=== PATIENT | female | born 1990 | race African-American/Black ===

== ENCOUNTER 2018-03-23 21:13 | Emergency (ER) | payer SELFPAY ==
[2018-03-23 21:41] VITALS: BP 107/56; PULSE 96; TEMP 99.1; BMI 38.2
[2018-03-23] MEDS ORDERED: ALBUTEROL SO4 2.5/IPRATROPIUM 0.5 INH SOL 3 ML VIAL.NEB. NEB ONE ×3 (22:25→22:51)
[2018-03-23] MEDS ORDERED: methylPREDNISolone NA SUCC 125 MG/2 ML VIAL IM ONE (22:25)
--- NOTE | 2018-03-23 22:30 | PDOC ---
History of Present Illness - General Chief Complaint: Asthma Stated Complaint: SICK Time Seen by Provider: 03/23/18 22:24 History Source: Patient Exam Limitations: Clinical Condition - History of Present Illness Initial Comments: 03/23/18 22:26 Patient with history of asthma and COPD on albuterol and Symbicort present with complaint of three-day history of persistent cough, runny nose, intermittent shortness of breath and chest tightness which has not been responding to home rescue inhaler. Patient reported malaise and persistent nonproductive cough. Patient report vomiting from coughing so much.Denies any other symptoms 03/23/18 22:28 Timing/Duration: other (3 days) Past History - Past Medical History Allergies/Adverse Reactions: Allergies Allergy/AdvReac Type Severity Reaction Status Date / Time Penicillins Allergy Verified 03/23/18 21:41 Home Medications: Ambulatory Orders Albuterol 2.5/Ipratropium 0.5 [Duoneb -] 1 neb NEB Q4H PRN 1 Days #1 vial Benzonatate [Tessalon Pearls -] 100 mg PO TID PRN #21 capsule 03/23/18 Loratadine 10 mg PO DAILY #10 capsule 03/23/18 Methylprednisolone [Medrol Dose Jarred] 4 mg PO ASDIR #21 tablet 03/23/18 Nebulizer and Compressor [Portable Nebulizer System] 1 each MC Q4H PRN #1 each 03/23/18 - Suicide/Smoking/Psychosocial Hx Smoking History: Never smoked Have you smoked in the past 12 months: No Information on smoking cessation initiated: No Hx Alcohol Use: No Drug/Substance Use Hx: No Review of Systems - Review of Systems Able to Perform ROS?: Yes Is the patient limited Syriac proficient: No Constitutional: Yes: Malaise. No: Chills, Fever, Weakness HEENTM: Yes: Symptoms Reported, See HPI, Nose Congestion. No: Eye Pain, Blurred Vision, Tearing, Recent change in vision, Double Vision, Cataracts, Ear Pain, Ocular Prothesis, Ear Discharge, Nose Pain, Tinnitus, Nose Bleeding, Hearing Loss, Throat Pain, Throat Swelling, Mouth Pain, Dental Problems, Difficulty Swallowing, Mouth Swelling, Other Respiratory: Yes: Symptoms reported, See HPI, Cough, Shortness of Breath, Wheezing. No: Orthopnea, SOB with Exertion, SOB at Rest, Stridor, Productive cough, Hemoptysis, Other Cardiac (ROS): No: Symptoms Reported, See HPI, Chest Pain, Edema, Irregular Heart Rate, Lightheadedness, Palpitations, Syncope, Chest Tightness, Other ABD/GI: Yes: Nausea, Vomiting. No: Constipated, Diarrhea All Other Systems: Reviewed and Negative *Physical Exam - Vital Signs Last Vital Signs Temp Pulse Resp BP Pulse Ox 99.1 F 96 H 18 107/56 L 99 03/23/18 21:38 03/23/18 21:38 03/23/18 21:38 03/23/18 21:38 03/23/18 21:38 - Physical Exam Comments: 03/23/18 22:28 GENERAL: Well developed, well nourished. Awake and alert. No acute distress. HEENT: Normocephalic, atraumatic. PERRLA, EOMI. No conjunctival pallor. Sclera are non-icteric. Moist mucous membranes. Oropharynx is clear. NECK: Supple. Full ROM. CARDIOVASCULAR: Regular rate and rhythm. No murmurs, rubs, or gallops. Distal pulses are 2+ and symmetric. PULMONARY: Moderate diffuse wheezing.No evidence of respiratory distress. No rales or rhonchi. ABDOMINAL: Soft. Non-tender. Non-distended. No rebound or guarding. No organomegaly. Normoactive bowel sounds. MUSCULOSKELETAL Normal range of motion at all joints. EXTREMITIES: No cyanosis. No clubbing. No edema. SKIN: Warm and dry. Normal capillary refill. No rashes. No jaundice. NEUROLOGICAL: Alert, awake, appropriate. Gait is normal without ataxia. PSYCHIATRIC: Cooperative. Good eye contact. Appropriate mood General Appearance: Yes: Nourished, Appropriately Dressed. No: Apparent Distress Moderate Sedation - Procedure Monitoring Vital Signs: Procedure Monitoring Vital Signs Temperature 99.1 F 03/23/18 21:38 Pulse Rate 96 H 03/23/18 21:38 Respiratory Rate 18 03/23/18 21:38 Blood Pressure 107/56 L 03/23/18 21:38 O2 Sat by Pulse Oximetry (%) 99 03/23/18 21:38 ED Treatment Course - RADIOLOGY Radiology Studies Ordered: Category Date Time Status CHEST PA & LAT [RAD] Stat Radiology 03/23/18 22:25 Ordered Medical Decision Making - Medical Decision Making 03/23/18 22:29 Patient with history of asthma and COPD on home meds present with complaint of 4 days history of persistent cough, nasal congestion, intermittent shortness of breath and vomiting from coughing. Patient reported using home rescue inhaler and Symbicort with no relief in symptoms. Exam significant for moderate diffuse wheezing with no rhonchi or rales. Patient in no acute respiratory distress. Nebulizer treatment with Atrovent and albuterol ordered. Solu-Medrol 125 mg IM ordered for bronchospasm. Chest x-ray ordered to rule out pneumonia. 03/23/18 23:18 Chest x-ray shows no acute infiltrate or pneumonia. Patient reported feeling better after nebulizer treatment and Solu-Medrol. Patient is stable for discharge with outpatient treatment for asthma and pulmonology follow-up. *DC/Admit/Observation/Transfer Diagnosis at time of Disposition: Cough Asthma Qualifiers: Asthma severity: moderate Asthma persistence: persistent Asthma complication type: with acute exacerbation Qualified Code(s): J45.41 - Moderate persistent asthma with (acute) exacerbation URI (upper respiratory infection) Qualifiers: URI type: unspecified URI Qualified Code(s): J06.9 - Acute upper respiratory infection, unspecified COPD (chronic obstructive pulmonary disease) Qualifiers: COPD type: unspecified COPD Qualified Code(s): J44.9 - Chronic obstructive pulmonary disease, unspecified - Discharge Dispostion Disposition: HOME Condition at time of disposition: Stable Decision to Admit order: No - Prescriptions Prescriptions: Albuterol 2.5/Ipratropium 0.5 [Duoneb -] 1 neb NEB Q4H PRN 1 Days #1 vial PRN Reason: Asthma Benzonatate [Tessalon Pearls -] 100 mg PO TID PRN #21 capsule PRN Reason: Cough Loratadine 10 mg PO DAILY #10 capsule Methylprednisolone [Medrol Dose Jarred] 4 mg PO ASDIR #21 tablet Nebulizer and Compressor [Portable Nebulizer System] 1 each MC Q4H PRN #1 each PRN Reason: Asthma - Referrals Referrals: Héctor Laws MD [Staff Physician] - - Patient Instructions Printed Discharge Instructions: Asthma -- Adult Additional Instructions: Your chest x-ray shows no pneumonia. Take medication as prescribed. Follow-up referred pulmonology for asthma control. - Post Discharge Activity
[2018-03-23] MEDS ORDERED: methylPREDNISolone NA SUCC 125 MG/2 ML VIAL ONE (22:31)
== END 2018-03-23 23:18 | disposition home or self-care (01) ==
LOC: JERFT 21:13
PROC: 3E0233Z Introduction of Anti-inflammatory into Muscle, Percutaneous Approach (ICD-10-PCS; principal; 2018-03-23)
PROC: 3E0F7GC Introduction of Other Therapeutic Substance into Respiratory Tract, Via Natural or Artificial Opening (ICD-10-PCS; 2018-03-23)
PROC: 3E0F7GC Introduction of Other Therapeutic Substance into Respiratory Tract, Via Natural or Artificial Opening (ICD-10-PCS; 2018-03-23)
DX: J45.41 Moderate persistent asthma with (acute) exacerbation (principal); J06.9 Acute upper respiratory infection, unspecified; J44.9 Chronic obstructive pulmonary disease, unspecified
CPT/HCPCS: 71046-TC-FY; 84703; 94640; 96372; 99281-25

== ENCOUNTER 2018-04-09 18:22 | Emergency (ER) | payer BC ==
--- NOTE | 2018-04-09 18:34 | PDOC ---
Rapid Medical Evaluation Chief Complaint: Vaginal Bleeding Time Seen by Provider: 04/09/18 18:32 Medical Evaluation: Allergies Allergy/AdvReac Type Severity Reaction Status Date / Time Penicillins Allergy Verified 03/23/18 21:41 04/09/18 18:33 I have performed a brief in person evaluation of this patient. The patient presents with the CC of: vaginal bleeding HPI: Pt is a 28 YO female who states that she had her Nexplanon removed approx 2 months ago and was given Depo approx 1-2 weeks post removal. She states she has been menstruating x 3 weeks and is soaking 4 pads daily. PE: Skin: Clear Lungs: Clear Heart: RRR Abd: non tender MS: Moves all extremities without difficulty Neuro: Alert and oriented Psych: Appropriate affect I have ordered the following: CBC, UHCG Pt will proceed to the main ED for further evaluation. Discharge Disposition - Diagnosis Vaginal bleeding - Discharge Dispostion Condition at time of disposition: Stable - Referrals - Patient Instructions - Post Discharge Activity
[2018-04-09 18:35] VITALS: BP 100/65; PULSE 108; TEMP 99.1; BMI 31.6
[2018-04-09 19:56] LABS: URINE APPEARANCE CLOUDY; URINE BILIRUBIN NEGATIVE (<2.0 mg/dL); URINE COLOR AMBER; URINE GLUCOSE (UA) NEGATIVE (NEGATIVE); URINE KETONE TRACE (NEGATIVE); URINE LEUK ESTERASE 2+ (NEGATIVE); URINE NITRITE POSITIVE (NEGATIVE); URINE PROTEIN 1+ (NEGATIVE); URINE UROBILINOGEN NEGATIVE mg/dL (0.2-1.0)
[2018-04-09 19:58] LABS: BASO % 0.5 % (0-2.0); EOS % 0.9 % (0-4.5); HEMATOCRIT 36.7 % (32.4-45.2); HEMOGLOBIN 12.1 GM/dL (10.7-15.3); LYMPH % 29.8 % (8-40); MCH 28.3 pg (25.7-33.7); MCHC 32.9 g/dl (32.0-36.0); MEAN CELL VOLUME 86.1 fl (80-96); MEAN PLT VOLUME 10.8 fl (7.5-11.1); MONO % 4.6 % (3.8-10.2); NEUT % 64.2 % (42.8-82.8); PLATELET COUNT 160 K/MM3 (134-434); RBC 4.26 M/mm3 (3.60-5.2); RDW 15.6 % (11.6-15.6); WHITE BLOOD COUNT 8.2 K/mm3 (4.0-10.0)
[2018-04-09 19:59] LABS: EPI CELLS MODERATE /HPF (FEW); URINE BACTERIA MANY /hpf (NONE SEEN); URINE MUCUS MANY; YEAST FEW
[2018-04-09 20:19] LABS: ALBUMIN 3.8 g/dl (3.4-5.0); ALK PHOS 74 U/L (45-117); ANION GAP 8 MMOL/L (8-16); BILIRUBIN,TOTAL 0.4 mg/dL (0.2-1); BLOOD UREA NITROGEN 5 mg/dL (7-18); CALCIUM 9.1 mg/dL (8.5-10.1); CHLORIDE 108 mmol/L (98-107); CO2 26 mmol/L (21-32); CREATININE 0.9 mg/dL (0.55-1.3); GLUCOSE,RANDOM 96 mg/dL (74-106); POTASSIUM 3.8 mmol/L (3.5-5.1); SGOT/AST 10 U/L (15-37); SGPT/ALT 21 U/L (13-61); SODIUM 143 mmol/L (136-145); TOT PROT 7.4 g/dl (6.4-8.2)
--- NOTE | 2018-04-09 20:31 | PDOC ---
History of Present Illness - General Chief Complaint: Vaginal Bleeding Stated Complaint: BLEEDING WITH STOMACH CRAMPS Time Seen by Provider: 04/09/18 18:32 History Source: Patient Exam Limitations: Clinical Condition - History of Present Illness Initial Comments: 04/09/18 20:25 Patient with history of bipolar disorder and anxiety present with complaint of three-day history of vaginal bleeding soaking 4 pads a day for 4 days. Patient reported she has been using Nexplanon for many years and just switched to depo injection for control 2 months ago. Patient reported she just had her first injection of Depo and now has been having excessive vaginal bleeding soaking through her pants. Patient reports soaking 5 pads yesterday and 3 pads today. Patient denies dizziness, shortness of breath, weakness, abdominal pain. Patient denies any other symptoms Timing/Duration: other (3 days) Past History - Past Medical History Allergies/Adverse Reactions: Allergies Allergy/AdvReac Type Severity Reaction Status Date / Time Penicillins Allergy Verified 03/23/18 21:41 Home Medications: Ambulatory Orders Albuterol 2.5/Ipratropium 0.5 [Duoneb -] 1 neb NEB Q4H PRN 1 Days #1 vial Benzonatate [Tessalon Pearls -] 100 mg PO TID PRN #21 capsule 03/23/18 Loratadine 10 mg PO DAILY #10 capsule 03/23/18 Methylprednisolone [Medrol Dose Jarred] 4 mg PO ASDIR #21 tablet 03/23/18 Nebulizer and Compressor [Portable Nebulizer System] 1 each MC Q4H PRN #1 each 03/23/18 Asthma: Yes COPD: Yes Other medical history: fibroid cyst - Immunization History Immunization Up to Date: No - Suicide/Smoking/Psychosocial Hx Smoking History: Never smoked Have you smoked in the past 12 months: No Information on smoking cessation initiated: No Hx Alcohol Use: No Drug/Substance Use Hx: No Review of Systems - Review of Systems Able to Perform ROS?: Yes Is the patient limited Ukrainian proficient: No Constitutional: No: Chills, Fever, Weakness HEENTM: No: Symptoms Reported Respiratory: No: Symptoms reported Cardiac (ROS): No: Symptoms Reported ABD/GI: No: Symptoms Reported : Yes: Other (vaginal bleeding). No: Burning, Dysuria, Discharge, Frequency, Flank Pain, Urgency Musculoskeletal: No: Symptoms Reported Integumentary: No: Symptoms Reported Neurological: No: Symptoms reported All Other Systems: Reviewed and Negative *Physical Exam - Vital Signs Last Vital Signs Temp Pulse Resp BP Pulse Ox 99.1 F 108 H 20 100/65 95 04/09/18 18:32 04/09/18 18:32 04/09/18 18:32 04/09/18 18:32 04/09/18 18:32 - Physical Exam Comments: 04/09/18 20:28 GENERAL: Well developed, well nourished. Awake and alert. No acute distress. NECK: Supple. Full ROM. CARDIOVASCULAR: Regular rate and rhythm. No murmurs, rubs, or gallops. Distal pulses are 2+ and symmetric. PULMONARY: No evidence of respiratory distress. Lungs clear to auscultation bilaterally. No wheezing, rales or rhonchi. ABDOMINAL: Soft. Non-tender. Non-distended. No rebound or guarding. No organomegaly. Normoactive bowel sounds. MUSCULOSKELETAL Normal range of motion at all joints. : scant amount of dark discharge in vaginal vault. no active bleeding. no visible lesions in vaginal vault. SKIN: Warm and dry.no cyanosis Normal capillary refill. NEUROLOGICAL: Alert, awake, appropriate. Gait is normal without ataxia. PSYCHIATRIC: Cooperative. Good eye contact. Appropriate mood General Appearance: Yes: Nourished, Appropriately Dressed. No: Apparent Distress Moderate Sedation - Procedure Monitoring Vital Signs: Procedure Monitoring Vital Signs Temperature 99.1 F 04/09/18 18:32 Pulse Rate 108 H 04/09/18 18:32 Respiratory Rate 20 04/09/18 18:32 Blood Pressure 100/65 04/09/18 18:32 O2 Sat by Pulse Oximetry (%) 95 04/09/18 18:32 ED Treatment Course - LABORATORY CBC & Chemistry Diagram: 04/09/18 19:46 04/09/18 19:46 - ADDITIONAL ORDERS Additional order review: Laboratory Results 04/09/18 04/09/18 04/09/18 19:46 19:45 19:45 Sodium 143 Potassium 3.8 Chloride 108 H Carbon Dioxide 26 Anion Gap 8 BUN 5 L Creatinine 0.9 Creat Clearance w eGFR > 60 Random Glucose 96 Calcium 9.1 Total Bilirubin 0.4 AST 10 L ALT 21 Alkaline Phosphatase 74 Total Protein 7.4 Albumin 3.8 Urine Color [place] Urine Appearance Cloudy Urine pH 5.0 Ur Specific [place] 1.023 Urine Protein 1+ H Urine Glucose (UA) Negative Urine Ketones Trace H Urine Blood 3+ H Urine Nitrite Positive Urine Bilirubin Negative Urine Urobilinogen Negative Ur Leukocyte Esterase 2+ H Urine WBC (Auto) 160 Urine RBC (Auto) 13 Ur Epithelial Cells Moderate Urine Bacteria Many Urine Mucus Many Urine Yeast Few Urine HCG, Qual Negative 04/09/18 19:46 RBC 4.26 MCV 86.1 MCHC 32.9 RDW 15.6 MPV 10.8 Neutrophils % 64.2 Lymphocytes % 29.8 Monocytes % 4.6 Eosinophils % 0.9 Basophils % 0.5 Medical Decision Making - Medical Decision Making 04/09/18 20:34 Patient with history of bipolar disorder and anxiety present with complaint of three-day history of vaginal bleeding soaking 4 pads a day for 4 days. Patient reported she has been using Nexplanon for many years and just switched to depo injection for control 2 months ago. Patient reported she just had her first injection of Depo and now has been having excessive vaginal bleeding soaking through her pants. Patient reports soaking 5 pads yesterday and 3 pads today. Exam significant for scant dark blood in vaginal vault. no active vaginal bleeding. CBC labs unremarkable. urine HCG neg. Patient stable for discharge with [facility] follow-up *DC/Admit/Observation/Transfer Diagnosis at time of Disposition: Vaginal bleeding, Abnormal uterine bleeding (AUB) - Discharge Dispostion Disposition: HOME Condition at time of disposition: Stable Decision to Admit order: No - Referrals Referrals: Josh Odell MD [Staff Physician] - - Patient Instructions Printed Discharge Instructions: DI for Abnormal Uterine Bleeding Additional Instructions: Your labs are normal. Follow-up with referred [facility] as soon as possible to manage abnormal uterine bleeding. Call [facility] clinic tomorrow for follow-up - Post Discharge Activity
== END 2018-04-09 21:10 | disposition home or self-care (01) ==
LOC: JER 18:22
DX: N93.9 Abnormal uterine and vaginal bleeding, unspecified (principal); F31.9 Bipolar disorder, unspecified; F41.9 Anxiety disorder, unspecified; Z88.0 Allergy status to penicillin
CPT/HCPCS: 36415; 80053; 81003; 81015; 84703; 85025; 99283-25